=== PATIENT | male | born 1995 | race Two or more races ===

== ENCOUNTER 2018-08-13 11:48 | Emergency (ER) | payer OTHER ==
[~2018-08-13] VITALS: Ht 172.7 cm; Wt 56.7 kg
--- NOTE | 2018-08-13 12:21 | NUR ---
PT WAS EVALUATED BY DR HIDALGO. PT WAS D/C'd TO HOME. D/C INSTRUCTIONS GIVEN TO THE PT.
[2018-08-13 12:22] VITALS: BP 128/70
== END 2018-08-13 12:23 | disposition home or self-care (01) ==
LOC: ER 11:50
DX: J02.9 Acute pharyngitis, unspecified (principal)
CPT/HCPCS: A4663